=== PATIENT | male | born 1965 | race Caucasian/White ===

== ENCOUNTER 2019-02-25 16:32 | Emergency (ER) | payer BC, OTHER ==
[2019-02-25] MEDS ORDERED: Ketorolac Tromethamine 60 MG/2 ML VIAL ONE (16:39)
[2019-02-25] MEDS ORDERED: Adacel (T-DAP) 0.5 ML SYRINGE ONE (16:41)
--- NOTE | 2019-02-25 16:54 | RAD ---
FLeft hand: 3 views. HISTORY: Hand injury. FINDINGS: Carpals appear intact with mild degenerative change. Metacarpals and phalanges appear intac t. IMPRESSION: No acute fracture
== END 2019-02-25 17:25 | disposition home or self-care (01) ==
LOC: BURERS 16:32
DX: S61.402A Unspecified open wound of left hand, initial encounter (principal); I10 Essential (primary) hypertension; Z79.899 Other long term (current) drug therapy; W32.0XXA Accidental handgun discharge, initial encounter
CPT/HCPCS: 90471; 90715; 96374; J1885